=== PATIENT | female | born 1990 | race Caucasian/White ===

== ENCOUNTER 2020-07-07 15:38 | Emergency (ER) | payer OTHER, SELFPAY ==
--- NOTE | 2020-07-07 16:57 | XR_ITS ---
EXAMINATION: XR HAND, RIGHT CLINICAL INFORMATION: Fall. COMPARISON: None TECHNIQUE: PA, lateral, and oblique views of the right hand. FINDINGS: The bones and soft tissues are normal. No fracture. Alignment is anatomic. Joint spaces are maintained. No erosions or soft tissue calcifications. XR/XR hand RT min 3V IMPRESSION: Normal right hand.
--- NOTE | 2020-07-07 16:57 | CT_ITS ---
EXAMINATION: CT HEAD WITHOUT CONTRAST CLINICAL INFORMATION: Loss of consciousness. Vomiting. COMPARISON: None. TECHNIQUE: Contiguous axial imaging was performed from the skull base to vertex without intravenous administration of contrast. Coronal and sagittal reformatted images are performed at the CT scanner. [This CT examination was performed using dose optimization techniques as appropriate, variously including the following: *Automated exposure control *Adjustment of mA and/or kV according to patient size (this includes techniques or standardized protocols for targeted exams where dose is matched to indication/reason for exam; i.e. extremities or head) *Use of iterative reconstruction technique] DLP: 619 mGy-cm. FINDINGS: There is no evidence of acute intracranial hemorrhage or territorial infarction. No abnormal mass-effect or midline shift is seen. Valdovinos to white matter differentiation is well preserved. No extra-axial fluid collections are identified. The ventricles are normal in size. There is no abnormal attenuation within the brain parenchyma. There is a small right frontal scalp hematoma. There is no osseous abnormality. The mastoid air cells and visualized portions of the paranasal sinuses are well-aerated. CT/CT head/brain wo con IMPRESSION: No acute intracranial pathology.
[2020-07-07 16:58] VITALS: BP 114/81; PULSE 91; RESP 18; TEMP 36.7; O2SAT 99; BMI 26.2
--- NOTE | 2020-07-07 17:02 | ED.FALL ---
HPI - Fall General Chief Complaint: Head Injury Stated Complaint: fall Time Seen by Provider: 07/07/20 16:51 Source: patient Mode of arrival: ambulatory Limitations: no limitations History of Present Illness HPI Narrative: Patient comes to the emergency room complaining of a fall. Patient states she was on the 2nd floor, she heard that her baby was crying, BP was on the 1st floor. Patient ran down the stairs, tried jumping over a baby gate, patient tripped, fell forward, landed on her right hand, hit her head. Patient states she thinks she lost consciousness, she has been feeling dizzy since it happened, has vomited 3 times. Patient complaining of right palmar pain MD complaint: fall Related Data Previous Rx's Medication Instructions Recorded tramadol 50 mg PO BID PRN #6 tab 07/07/20 Allergies Allergy/AdvReac Type Severity Reaction Status Date / Time latex [LATEX] Allergy Unknown RASH Verified 07/07/20 17:02 miconazole [Monistat 3] Allergy Unknown rash Verified 07/07/20 17:02 skin cleanser combination Allergy Unknown rash Verified 07/07/20 17:02 no.17 [Monistat 3] Latex Exam Gloves Allergy Unknown rash Uncoded 12/13/18 00:00 Review of Systems Review of Systems: Constitutional : No Weight loss, No Fever, No Chills, No Night Sweats, No Fatigue, No Malaise ENT/Mouth : No Hearing loss, No Ear Pain, No Nasal Congestion, No Sinus Pain, No Hoarseness, No sore throat, No Rhinorrhea, No Swallowing Difficulty Eyes: No Eye Pain, No Swelling, No Redness, No Foreign Body, No Discharge, No Vision Changes Cardiovascular : No Chest Pain, No SOB, No Dyspnea on Exertion, No Orthopnea, No Edema, No Palpitations Respiratory : No Cough, No Sputum, No Wheezing, No Smoke Exposure, No Dyspnea Gastrointestinal : Weaning of nausea vomiting, No Diarrhea, No Constipation, No abdominal Pain, No Hematochezia, No Melena Genitourinary : no irregular bleeding, No Dysuria, No Urinary Frequency, No Hematuria, No Urinary Incontinence, No Urgency, No Flank Pain, No Urinary Flow Changes, No Hesitancy Musculoskeletal : No joint pain, No Myalgias, No Joint Swelling Skin : No Skin Lesions, ecchymosis on right hand Neuro : No Weakness, No Numbness, No Paresthesias, patient reports possible loss of consciousness, dizziness and vomiting Psych : No Anxiety/Panic, No Depression, No SI/HI/AH/VH, No Social Issues, Heme/Lymph: No Bruising, No Bleeding,No Lymphadenopathy Endocrine : No Polyuria, No Polydipsia, No Temperature Intolerance [facility] Past Medical History Medical History Anxiety Asthma Depression Social History Social History Advance Directives: No Advance Directives Information Provided: No Physical Exam Vital Signs: Vital Signs: Last Vital Signs Temp 98.0 F 07/07/20 16:58 Pulse 91 07/07/20 16:58 Resp 18 07/07/20 16:58 BP 114/81 07/07/20 16:58 Pulse Ox 99 07/07/20 16:58 Body Mass Index 26.2 Appearance: Alert. Oriented X3. No acute distress. Eyes: Pupils equal, round and reactive to light. ENT: Pharynx normal. Neck: Normal inspection. Neck supple. No lymph nodes noted. No crepitus CVS: Normal heart rate and rhythm. Pulses normal. Normal S1 and S2 Respiratory: No respiratory distress. Breath sounds normal. No Wheezing. No rales Abdomen: Soft and nontender. No rigidity. No distention. good BS x4 Skin: Skin warm and dry. Ecchymosis over the palmar aspect of right hand over trapezius and scapular, ecchymosis over right side of the forehead Extremities: No lower extremity edema. Pain to palpation over the snuffbox of the right hand, patient able to flex and extend all fingers of right and left hand Neuro: Oriented X 3. No motor deficit. No sensory deficit. Moving all extermities. No slurred speech. Course Course Course Narrative: Patient remains neurologically intact. I discussed with the patient that although her x-ray of the hand was normal, given that she has pain in the snuffbox, fracture is not ruled out, she will need repeat x-rays. Patient will get a thumb spica splint, and she needs to follow-up with orthopedics tomorrow MDM - Fall Imaging Data CT scan - head: Radiologist's impression: FINDINGS: There is no evidence of acute intracranial hemorrhage or territorial infarction. No abnormal mass-effect or midline shift is seen. Valdovinos to white matter differentiation is well preserved. No extra-axial fluid collections are identified. The ventricles are normal in size. There is no abnormal attenuation within the brain parenchyma. There is a small right frontal scalp hematoma. There is no osseous abnormality. The mastoid air cells and visualized portions of the paranasal sinuses are well-aerated. CT/CT head/brain wo con IMPRESSION: No acute intracranial pathology. Hand x-ray: Radiologist's impression: [address] [id number] XRay Report Signed Patient: Oliva MichelleMR#: [id number] : 1990Acct:[id number] Age/Sex: 29 / FADM Date: 07/07/20 Loc: HO.ED Attending Dr: Ordering Physician: BREONNA AVELAR MD Date of Service: 07/07/20 Procedure(s): XR hand RT min 3V Accession Number(s): [id number] cc: BREONNA AVELAR MD~ EXAMINATION: XR HAND, RIGHT CLINICAL INFORMATION: Fall. COMPARISON: None TECHNIQUE: PA, lateral, and oblique views of the right hand. FINDINGS: The bones and soft tissues are normal. No fracture. Alignment is anatomic. Joint spaces are maintained. No erosions or soft tissue calcifications. XR/XR hand RT min 3V IMPRESSION: Normal right hand. Discharge Plan Discharge Clinical Impression: Concussion without loss of consciousness, Contusion of hand Patient Disposition: Home, Self-Care Instructions: Concussion (ED), Contusion in Adults (ED) Additional Instructions: Apply ice to your hand 15 minutes every 2 hours while you are awake. Make sure the ice is not in direct contact with her skin. You will need follow-up with your PCP and with Orthopedics, he will likely need repeat x-rays. If anything changes, any new symptoms, please return to the emergency room or call 911. Prescriptions: New tramadol 50 mg tablet 50 mg PO BID PRN (Reason: pain) Qty: 6 RF: 0 Referrals: Jean Momin MD [Physician] - 1 day
[2020-07-07] MEDS: Ibuprofen 600 MG TABLET PO (17:17)
== END 2020-07-07 19:37 | disposition home or self-care (01) ==
PROVIDERS: Emergency Provider Emergency Medicine; PCP Internal Medicine
DX: S06.0X0A Concussion without loss of consciousness, initial encounter (principal); S60.221A Contusion of right hand, initial encounter; W10.8XXA Fall (on) (from) other stairs and steps, initial encounter; Y93.89 Activity, other specified; Y92.018 Other place in single-family (private) house as the place of occurrence of the external cause; Y99.9 Unspecified external cause status
CPT/HCPCS: 29125; 70450; 73130; 99284

== ENCOUNTER → 2020-07-09 14:08 | Outpatient (BNVA) | payer OTHER, SELFPAY | PROVIDERS: PCP Internal Medicine; Visit Provider Orthopaedic Surgery | DX: S60.221A Contusion of right hand, initial encounter (principal) | CPT/HCPCS: 99202 ==

== ENCOUNTER 2024-08-19 16:35 | Emergency (ER) | payer BC, SELFPAY ==
--- NOTE | ~2024-08-19 | XR_ITS ---
CLINICAL HISTORY: cough 1 view chest x-ray Comparison: None Findings: No consolidation or effusion. Normal size heart. No acute fracture. IMPRESSION: 1. No acute findings. This document has been electronically signed by: Jaqui Méndez MD on 08/19/2024 17:34:35
[2024-08-19 16:48] VITALS: BP 138/72; PULSE 100; RESP 19; TEMP 37.1; O2SAT 96; BMI 25.0
--- NOTE | 2024-08-19 16:50 | ED_ITS ---
HPI - General Adult General Chief complaint: Upper Respiratory Symptoms Stated complaint: congestion cough,fever Time Seen by Provider: 08/19/24 22:41 Source: patient Mode of arrival: ambulatory Limitations: no limitations History of Present Illness ED Provider: Dr. Brianne Avelar HPI narrative: Patient comes to the emergency room complaining of cough, fever for 1 week. Patient states that her 2 young children tested positive for influenza B. patient denies nausea vomiting or diarrhea Related Data Home Medications ?Medication ?Instructions ?Recorded ?Confirmed escitalopram oxalate 20 mg tablet 20 mg PO DAILY 07/09/20 (Lexapro) famotidine 20 mg tablet 20 mg PO BEDTIME 07/09/20 Allergies Allergy/AdvReac Type Severity Reaction Status Date / Time miconazole [Monistat 3] Allergy Unknown rash Verified 08/19/24 16:50 skin cleanser combination Allergy Unknown rash Verified 08/19/24 16:50 no.17 [Monistat 3] Review of Systems Review of Systems: Constitutional : No Weight loss, complaining of fever, chills, fatigue and generalized malaise ENT/Mouth : No Hearing loss, No Ear Pain, No Nasal Congestion, No Sinus Pain, No Hoarseness, No sore throat, No Rhinorrhea, No Swallowing Difficulty Eyes: No Eye Pain, No Swelling, No Redness, No Foreign Body, No Discharge, No Vision Changes Cardiovascular : No Chest Pain, No SOB, No Dyspnea on Exertion, No Orthopnea, No Edema, No Palpitations Respiratory : Complaining of productive cough, No Wheezing, No Smoke Exposure, No Dyspnea Gastrointestinal : No Nausea, No Vomiting, No Diarrhea, No Constipation, No abdominal Pain, No Hematochezia, No Melena Genitourinary : no irregular bleeding, No Dysuria, No Urinary Frequency, No Hematuria, No Urinary Incontinence, No Urgency, No Flank Pain, No Urinary Flow Changes, No Hesitancy Musculoskeletal : No joint pain, No Myalgias, No Joint Swelling Skin : No Skin Lesions, No rash Neuro : No Weakness, No Numbness, No Paresthesias, No Loss of Consciousness, No Dizziness, No Headache Psych : No Anxiety/Panic, No Depression, No SI/HI/AH/VH, No Social Issues, Heme/Lymph: No Bruising, No Bleeding,No Lymphadenopathy Endocrine : No Polyuria, No Polydipsia, No Temperature Intolerance [facility] Past Medical History Medical History (Updated 08/19/24 @ 23:04 by Brianne Avelar MD) Asthma Depression Anxiety Surgical History (Updated 07/09/20 @ 14:26 by Marietta Montanez CMA) History of tonsillectomy Social History Social History (Updated 07/09/20 @ 14:27 by Marietta Montanez CMA) Advance Directives: No Advance Directives Information Provided: Yes Do you have a plan to hurt others: No Plan Current occupational status: unemployed and previously employed 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 Oriented X3. No acute distress. Eyes: Pupils equal, round and reactive to light. ENT: Pharynx normal. Neck: Normal inspection. Neck supple. No lymph nodes noted. No crepitus CVS: Normal heart rate and rhythm. Pulses normal. Normal S1 and S2 Respiratory: No respiratory distress. Breath sounds normal. No Wheezing. No rales Abdomen: Soft and nontender. No rigidity. No distention. Skin: Skin warm and dry. Normal skin color. Normal skin turgor. Extremities: No lower extremity edema. No Lacerations. No Rash Neuro: Oriented X 3. No motor deficit. No sensory deficit. Moving all extremities. No slurred speech. CN 2 through 12 grossly intact Psych: calm, cooperative, normal affect Course Course Course Narrative: This is a rapid medical exam performed by Nela Sena PA-C. The patient is a 33-year-old female with a history of asthma who presents with cough and cold symptoms for 6 days. Associated fevers at home with dry repetitive bronchospasm type cough. On exam, she has an active bronchospasm cough, however no wheezing noted. We will obtain a viral panel and chest x-ray, to note her son is here for assessment with the same symptoms. The patient is stable and can return to the waiting room pending her full medical assessment. Medical Decision Making Medical Decision Making MDM Narrative: I discussed with the patient that she tested positive for influenza B Patient states that she has Tylenol and ibuprofen at home. Differential Diagnosis Differential Diagnoses: The differential diagnosis associated with the presentation includes (Influenza, COVID, RSV, pneumonia) Lab Data MDM Lab Attestation statement: I reviewed the patient's lab results. Labs: Lab Results 08/19/24 Range/Units 17:10 Influenza Type A (PCR) NEGATIVE (Negative) Influenza Type B (PCR) POSITIVE A (Negative) RSV RNA Qual (PCR) NEGATIVE (Negative) SARS-CoV-2 RNA (RT-PCR) NEGATIVE (Negative) Independent Interpretation I performed an independent interpretation of an: Plain X-Ray Radiology Impression Discussion of test interpretation with radiology: I have reviewed the radiologist's reading. Radiologist Impression: No consolidation or effusion. Normal size heart. No acute fracture. IMPRESSION: 1. No acute findings Discharge Plan Discharge Clinical Impression: Influenza B Patient Disposition: Home, Self-Care Instructions: Influenza (ED) Additional Instructions: Please follow-up with your primary care physician tomorrow. If you have any worsening or new symptoms, please return to the emergency room or call 911 Stand Alone Forms: Work/School Release Print Language: British
[2024-08-19 18:03] LABS: Influenza A PCR NEGATIVE (Negative); Influenza B PCR POSITIVE (Negative); Resp Syncy Virus RNA Qual PCR NEGATIVE (Negative); SARS COV2 PCR INHOUSE NEGATIVE (Negative)
[2024-08-19 23:19] VITALS: BP 112/65; PULSE 96; RESP 20; TEMP 37; O2SAT 96
== END 2024-08-19 23:19 | disposition home or self-care (01) ==
PROVIDERS: Physician Assistant Medical; Emergency Provider Emergency Medicine
DX: J10.1 Influenza due to other identified influenza virus with other respiratory manifestations (principal); R05.9 Cough, unspecified; R50.9 Fever, unspecified; Z03.818 Encounter for observation for suspected exposure to other biological agents ruled out
CPT/HCPCS: 0241U; 71045; 99282; 99283

== ENCOUNTER → 2024-08-19 16:48 | Outpatient (BNV) | payer OTHER, SELFPAY | PROVIDERS: Visit Provider Nuclear Medicine | DX: R05.9 Cough, unspecified (principal) | CPT/HCPCS: 71045 ==